=== PATIENT | female | born 1965 | race African-American/Black ===

== ENCOUNTER 2018-09-29 08:04 | Emergency (ER) | payer SELFPAY, OTHER ==
[2018-09-29] MEDS: HYDROCODONE/APAP (5/325) TAB PO (09:19)
[2018-09-29] MEDS: LIDOCAINE 1%/EPI (1:100,000) (MDV) 20 ML INJ (09:58)
[2018-09-29] MEDS: LIDOCAINE 1%/EPI 30 ML INJ INJ (09:58)
[2018-09-29] MEDS: SILVER NITRATE SWAB TOP ×2 (09:59→10:50)
[2018-09-29] MEDS: ACETAMINOPHEN 325 MG TAB PO (10:13)
[2018-09-29 12:13] LABS: ADD MAN DIFF? NO
[2018-09-29 12:15] LABS: WHITE BLOOD COUNT 6.3 10^3/ul (4.8-10.8)
[2018-09-29 12:15] LABS: ABNORMAL IP MESSAGE 1; BASOPHILS % 0.5 % (0.0-2.0); EOSINOPHILS # 0.1 10^3/ul (0.0-0.5); EOSINOPHILS % 1.9 % (0.0-7.0); HEMATOCRIT 41.8 % (37.0-47.0); LYMPHOCYTES # 0.6 10^3/ul (0.8-2.9); LYMPHOCYTES % 8.9 % (15.0-51.0); MEAN CORPUSCULAR HEMOGLOBIN 30.6 pg (29.0-33.0); MEAN CORPUSCULAR HGB CONC 33.5 g/dl (32.0-37.0); MEAN CORPUSCULAR VOLUME 91.5 fl (82.0-101.0); MEAN PLATELET VOLUME 10.8 fl (7.4-10.4); MONOCYTE # 0.5 10^3/ul (0.3-0.9); MONOCYTES % 8.4 % (0.0-11.0); NEUTROPHIL # 5.1 10^3/ul (1.6-7.5); PLATELET COUNT 165 10^3/UL (140-415); RED BLOOD COUNT 4.57 10^6/ul (4.20-5.40); RED CELL DISTRIBUTION WIDTH 12.7 % (11.5-14.5)
[2018-09-29 12:17] LABS: POSITIVE DIFF @See below
[2018-09-29 12:36] LABS: ANION GAP 9 (5-13); BLOOD UREA NITROGEN 14 mg/dl (7-20); CALCIUM 9.5 mg/dl (8.4-10.2); CARBON DIOXIDE 29 mmol/L (21-31); CHLORIDE 104 mmol/L (97-110); CREATININE 0.89 mg/dl (0.44-1.00); Estimated GFR > 60 mL/min (>60); GLUCOSE 103 mg/dl (70-220); POTASSIUM 4.3 mmol/L (3.5-5.1); SODIUM 142 mmol/L (135-144)
== END 2018-09-29 12:54 | disposition home or self-care (01) ==
LOC: FTE 08:04
DX: B07.9 Viral wart, unspecified (principal)
CPT/HCPCS: 36415; 80048; 85025; 99284

== ENCOUNTER 2018-09-29 17:57 | Emergency (ER) | payer SELFPAY | END 2018-09-29 19:30 | disposition home or self-care (01) | LOC: FTE 17:57 | DX: A63.0 Anogenital (venereal) warts (principal) | CPT/HCPCS: 99282 ==